=== PATIENT | female | born 1955 | race Asian ===

== ENCOUNTER → 2024-03-31 08:50 | Outpatient (CLI) | payer MEDICARE, OTHER, SELFPAY ==
--- NOTE | 2024-03-31 17:39 | DI.NM.S_ITS ---
DATE OF SERVICE: 03/31/2024 NUCLEAR CARDIOLOGY MYOCARDIAL PERFUSION STUDY PROCEDURE: Exercise treadmill stress and rest myocardial perfusion imaging with gating to assess ejection fraction and regional wall motion. ORDERING PROVIDER: SKYE Barrientos INDICATIONS: The patient is a 68-year-old female with atypical epigastric and chest discomfort. CARDIAC STRESS: The patient was able to exercise for 4 minutes and 30 seconds on a standard Bc protocol suggesting mildly reduced exercise capacity with an KEEGAN of +10%, achieving 7.0 METS. She had a normal heart rate and blood pressure response to exercise, achieving a maximum heart rate of 151 bpm (99% of her predicted maximum). She had no chest discomfort or other anginal symptoms. Her resting ECG is normal and there are no significant ST-segment shifts or arrhythmias with stress. At 3 minutes 30 seconds of exercise at a heart rate of 145 bpm, 27.5 mCi of technetium-99m Myoview was injected and she was imaged 15 minutes later using a gated SPECT acquisition protocol. Earlier in the day while at rest, she had been injected with 10.8 mCi of technetium-99m Myoview and was imaged 15 minutes later, again using a gated SPECT acquisition protocol. FINDINGS: 1. Raw data: There is good myocardial tracer uptake with minimal breast shadows noted. The lung/heart ratio is normal at 0.30 with a normal TID ratio of 0.70. 2. Quantitated gated SPECT: Post-stress ejection fraction is estimated at 95%, likely an overestimate because of small left ventricular volumes. There are no focal wall motion abnormalities. The resting ejection fraction is 90%, also likely an overestimate, with a small resting end-diastolic volume of 41 mL. 3. Myocardial perfusion imaging: Post-stress supine images show a normal myocardial perfusion pattern without any perfusion defects, supported by normal perfusion imaging in the prone position. The resting images show an identical perfusion pattern without any areas of improvement. IMPRESSION: 1. Normal myocardial perfusion study. 2. No evidence for myocardial ischemia or previous myocardial infarction. 3. High normal left ventricular systolic function with relatively small left ventricular volumes. There are no focal wall motion abnormalities. 4. Mildly impaired exercise capacity without angina or ECG evidence of ischemia. Darlene Renner - DAKSHA/lydia/KEVIN doc#: [id number]/job#: [id number] dd: 03/31/2024 16:37:00 dt: 03/31/2024 17:05:00 DICTATING MD/COPIES TO: Chiki Campos MD; SKYE Puga COPIES MNE: ADILIA;
== END ==
PROVIDERS: PCP Nurse Practitioner; Referring Provider Nurse Practitioner; Visit Provider Nurse Practitioner
DX: R07.9 Chest pain, unspecified (principal)
CPT/HCPCS: 78452; 93017; A9502